=== PATIENT | female | born 1985 | race Two or more races ===

== ENCOUNTER 2020-12-26 18:43 | Emergency (ER) | payer OTHER ==
[~2020-12-26] VITALS: Ht 152.4 cm; Wt 54.4 kg
[2020-12-26] MEDS ORDERED: INTESTINEX680 M1 PO (20:05)
[2020-12-26] MEDS ORDERED: NAPROXEN375 MG PO (20:05)
[2020-12-26] MEDS ORDERED: AMOXICILLIN500 M1 PO (20:05)
== END 2020-12-26 20:23 | disposition home or self-care (01) ==
LOC: ER 18:43
DX: S01.82XA Laceration with foreign body of other part of head, initial encounter (principal); W18.09XA Striking against other object with subsequent fall, initial encounter; Y93.89 Activity, other specified; Y92.89 Other specified places as the place of occurrence of the external cause; Y99.8 Other external cause status